=== PATIENT | female | born 1960 | race Caucasian/White ===

== ENCOUNTER → 2017-02-18 | Outpatient (CLI) | payer BC ==
[~2017-02-18] MED LIST: ALBUTEROL 0.5ML INH; CLARITIN10 M2 PO; FISH OIL 1,0001 CAP PO; MUCINEX OTC PRN; NORCO 5/325 TAB1 TAB PO; PRAVACHOL PO; PREDNISONE PO; TRIAMTERENE; TRIAMTERENE-HC1 EAC1 PO; TYLENOL PM EX-S1 TA4 PO
--- NOTE | ~2017-02-18 | US98 ---
[facility] A Service of [facility] & [facility] RADIOLOGY TEXT RESULTS PATIENT: LATA COSBY LOCATION: [facility] : 60 UNIT #: [id number] AGE: [address]: Belem Dyer APRN SEX: F ORDER DR: [id number] [address] [address] [id number] MR#: [id number] Acc #: [id number] NAME: LATA COSBY : 1960 SEX: F STUDY DATE/TIME: 02/18/2017 8:59 UNIT: SG ROOM: STUDY DESCRIPTION: US Pelvic Non-OB Complete Attending Physician: Belem Dyer A.P.R.N. Referring Physician: Belem Dyer A.P.R.N. Ordering Physician: Belem Dyer A.P.R.N. Primary Care Physician: Dorothy Garvey M.D. MEDICAL IMAGING REPORT This report is preliminary unless electronic signature is present. EXAM Transabdominal and transvaginal pelvic ultrasound, 02/18/2017 HISTORY Pelvic pain for 2 years, worse at night. FINDINGS Transabdominal and transvaginal pelvic ultrasound was performed. Endovaginal ultrasound was performed for attempted better visualization of the adnexal structures. Bladder is normal in appearance. The uterus measures 6.2 cm craniocaudal x 2.5 cm AP x 3.6 cm transverse. The endometrial stripe measures 3.0 mm. The ovaries were not identified on either transabdominal or transvaginal portions of the examination. No adnexal mass was seen. Trace free fluid was seen in the pelvis. IMPRESSION Limited examination as the ovaries were not identified on either transabdominal or transvaginal portions of the examination. There is no adnexal mass. Only trace free fluid was seen within the pelvis. Dictated by... Maurice Witt M.D. THIS IS AN ELECTRONICALLY VERIFIED REPORT Maurice Witt M.D. at 02/18/2017 5:55 PM BE/sarina TD: 02/18/2017 13:02 JOB #: [id number] MEDICAL IMAGING REPORT Page 1 of 1
== END | disposition home or self-care (01) ==
LOC: SGUS 08:40
DX: R10.2 Pelvic and perineal pain (principal)
CPT/HCPCS: 76830; 76856